=== PATIENT | male | born 1995 | race Caucasian/White ===

== ENCOUNTER 2020-09-01 22:24 | Emergency (ER) | payer MEDICAID, OTHER ==
[~2020-09-01] VITALS: Ht 177.8 cm; Wt 111.0 kg
--- NOTE | 2020-09-01 22:51 | NUR ---
PT REPORTS HE HAD A PIMPLE UNDER TESTICLES THAT HE POKED WITH A SEWING NEEDLE TO DRAIN AND NOW IT IS WORSE AND MORE SWOLLEN WITH A LUMP NEXT TO IT. DR. KNOX TO BEDSIDE FOR EVALUATION. PT POSTIONED TO COMFORT. ATTACHED TO MONITORS. VSS. KELLER.
[2020-09-01] MEDS ORDERED: CLINDAMYCIN PMX 600MG/50ML 50 ML IV ONE (23:00)
[2020-09-01] MEDS ORDERED: SODIUM CHLORIDE FLUSH 10ML SYR IVF ONE (23:00)
[2020-09-01] MEDS ORDERED: CLINDAMYCIN PMX 600MG/50ML 50 ML ONE (23:24)
[2020-09-01 23:30] LABS: BASOPHILS % (AUTO) 0 % (0-1); EOSINOPHILS % (AUTO) 0 % (1-7); LYMPHOCYTES % (AUTO) 15 % (22-44); MEAN CORPUSCULAR HGB CONC 34.4 g/dL (33.2-36.2); MEAN PLATELET VOLUME 8.2 fL (7.4-10.4); MONOCYTES % (AUTO) 6 % (2-9); NEUTROPHILS % (AUTO) 79 % (42-75); PLATELET COUNT 310 x10^3/uL (130-400); RED BLOOD COUNT 5.13 x10^6/uL (4.38-5.82); RED CELL DISTRIBUTION WIDTH 14.4 % (9.4-14.8)
[2020-09-01 23:31] LABS: MD NO
[2020-09-01 23:42] LABS: ALANINE AMINOTRANSFERASE 33 U/L (12-78); ALBUMIN 4.2 g/dL (3.4-5.0); ANION GAP 5 mmol/L (5-15); CALCIUM 9.2 mg/dL (8.5-10.1); CHLORIDE 109 mmol/L (98-107); CREATININE 0.74 mg/dL (0.7-1.3)
[2020-09-01 23:44] LABS: ALKALINE PHOSPHATASE 91 U/L (45-117); BILIRUBIN,TOTAL 0.8 mg/dL (0.2-1.0); TOTAL PROTEIN 8.1 g/dL (6.4-8.2)
--- NOTE | 2020-09-01 23:58 | NUR ---
PT TO CT
[2020-09-02] MEDS ORDERED: OMNIPAQUE 350 MG/ML, 100ML BOTTLE ONE
--- NOTE | 2020-09-02 00:06 | NUR ---
PT BACK FROM CT. UP TO BATHROOM WITH STEADY GAIT.
[2020-09-02 00:26] VITALS: BP 147/86
[2020-09-02] MEDS ORDERED: PROPOFOL 10 MG/ML, 20ML IVPush ONE (01:00)
[2020-09-02] MEDS ORDERED: LIDOCAINE-MPF 1%, 5ML INFIL ONE (01:00)
[2020-09-02] MEDS ORDERED: LIDOCAINE-MPF 1%, 5ML ONE (01:14)
[2020-09-02] MEDS ORDERED: PROPOFOL 10 MG/ML, 20ML ONE ×2 (01:14→01:31)
--- NOTE | 2020-09-02 01:25 | NUR ---
PT PREPARED FOR CONSCIOUSS SEDATION FOR I&D OF ABCESS ON HIS PERINEUM. CONSENTS SIGNED, V/S NOTED, AND PROCEDURE TO BEGIN. PT RECEIVED PROPOFOL IVP BY , AND SEDATED. PT REMAINS ON COMPLETE CR MONITOR, AND IS NOW SEDATED, AND PROCEDURE TO BEGIN. PT HAD I&D OF ABCESS AND DRAINED AND PACKED WITH STERILE PACKING.
--- NOTE | 2020-09-02 01:50 | NUR ---
PT RECOVERED FROM SEDATION, AWAKE AND ALERT, AND TALKATIVE. ABLE TO STAND AND IS STEADY.
[2020-09-02] MEDS ORDERED: IBUPROFEN 600 MG TABLET ONE (01:55)
[2020-09-02] MEDS ORDERED: IBUPROFEN 600 MG TABLET PO ONE (02:00)
--- NOTE | 2020-09-02 02:15 | NUR ---
F/U AND D/C INSTRUCTIONS GIVEN TO PT AND PIV D/C'D WITH CATH TIP INTACT. PT TOLERATED WELL, TOOK INSTRUCTIONS AND PRESCRIPTIONS AND D/C'D WITHOUT INCIDENT.
== END 2020-09-02 02:29 | disposition home or self-care (01) ==
LOC: ED 09-02 00:44
DX: L02.215 Cutaneous abscess of perineum (principal); L03.315 Cellulitis of perineum; R10.2 Pelvic and perineal pain
CPT/HCPCS: 36415; 46050; 72193; 80053; 85025; 96365; 99152; 99285; J2704; Q9967

== ENCOUNTER 2020-09-03 23:22 | Emergency (ER) | payer OTHER ==
[~2020-09-03] VITALS: Ht 180.3 cm; Wt 112.0 kg
[2020-09-04] MEDS ORDERED: OXYcodone/APAP 5/325MG TABLET PO ONE (01:30)
[2020-09-04] MEDS ORDERED: OXYcodone/APAP 5/325MG TABLET ONE (01:33)
[2020-09-04 02:08] VITALS: BP 133/68
== END 2020-09-04 02:10 | disposition home or self-care (01) ==
LOC: ED 23:52
DX: Z48.01 Encounter for change or removal of surgical wound dressing (principal)
CPT/HCPCS: 99283

== ENCOUNTER 2020-11-04 03:12 | Emergency (ER) | payer OTHER ==
[~2020-11-04] VITALS: Ht 177.8 cm; Wt 110.0 kg
--- NOTE | 2020-11-04 03:36 | NUR ---
ZAKI SWAN AT BEDSIDE.
[2020-11-04] MEDS ORDERED: DEXAMETHASONE 4 MG TABLET ONE (03:45)
[2020-11-04] MEDS ORDERED: DEXAMETHASONE 4 MG TABLET PO ONE (04:00)
[2020-11-04] MEDS ORDERED: ACETAMINOPHEN 500 MG TABLET ONE (04:16)
[2020-11-04 04:23] VITALS: BP 131/85
[2020-11-04] MEDS ORDERED: ACETAMINOPHEN 500 MG TABLET PO ONE (04:30)
--- NOTE | 2020-11-04 04:30 | NUR ---
Patient given discharge instructions and they have confirmed that they understand the instructions. Patient ambulatory with steady gait.
== END 2020-11-04 04:31 | disposition home or self-care (01) ==
LOC: ED 03:42
DX: J02.0 Streptococcal pharyngitis (principal); R00.0 Tachycardia, unspecified
CPT/HCPCS: 87880; 99283